=== PATIENT | male | born 1990 | race Two or more races ===

== ENCOUNTER 2021-06-03 11:42 | Emergency (ER) | payer OTHER ==
[~2021-06-03] VITALS: Ht 180.3 cm; Wt 117.9 kg
[2021-06-03] MEDS ORDERED: cefTRIAXone SOD 1,000 MG VL IM ONE (13:15)
[2021-06-03] MEDS ORDERED: DexAMETHasone SOD PHOS 10MG/1ML VIAL INJ IM ONE (13:15)
[2021-06-03 13:50] VITALS: BP 142/76
== END 2021-06-03 13:53 | disposition home or self-care (01) ==
LOC: ER 11:42
DX: J40 Bronchitis, not specified as acute or chronic (principal); J02.9 Acute pharyngitis, unspecified; Z20.822 Contact with and (suspected) exposure to COVID-19
CPT/HCPCS: 71045; 96372; 99284; J0696; J1100